=== PATIENT | male | born 1975 | race Caucasian/White ===

== ENCOUNTER 2016-11-30 14:01 | Emergency (ER) | payer MEDICAID, MEDICARE, SELFPAY ==
[~2016-11-30 14:01] MED LIST: AMIT50TA2 PO; LYRI300C PO; PERC5TAB8 PO
[2016-11-30] MEDS ORDERED: NAPROXEN 250 MG TAB As Ordered ONE (15:57)
[2016-11-30] MEDS ORDERED: CEPHALEXIN 250 MG CAP As Ordered ONE (15:57)
[2016-11-30] MEDS ORDERED: DERMABOND TOPICAL SKIN ADHESIVE As Ordered ONE (16:00)
--- NOTE | 2016-11-30 16:52 | EDDOCDS ---
Physician Documentation [facility] Name: Mark Espino Age: 41 yrs Sex: Male : 1975 Arrival Date: 11/30/2016 Time: 14:01 Bed 30 Private MD: Esteban Rasmussen MD Disposition: 11/30 16:35 Critical Care: Critical care not applicable. le Disposition: 11/30/16 16:34 Discharged to Home/Self Care. Impression: Laceration without foreign body of right index finger without damage to nail. - Condition is Stable. - Discharge Instructions: Laceration Care, Adult. - Prescriptions for Keflex 500 mg Oral Capsule - take 1 capsule by ORAL route every 8 hours for 5 days; 15 capsule. - Medication Reconciliation, Local Pharmacy Hours, Work Release Form - 5 day form. - Follow up: Esteban Rasmussen; When: As needed; Reason: Recheck today's complaints, Continuance of care. - Problem is new. - Symptoms have improved. - Notes: Return to the ED for any further concerns Historical: - Allergies: SULFA (SULFONAMIDES) (Hives); - Home Meds: 1. pregabalin 300 mg Oral cap 1 cap 2 times per day (Last dose: 11/30/2016 08:00) 2. Percocet 5-325 mg Oral tab 1 tab as needed (Last dose: 11/30/2016 08:00) - PMHx: Hernia; herniated disc's; - PSHx: Umbilical hernia repairs; - Social history: Smoking status: Patient uses tobacco products, current every day smoker. No barriers to communication noted, The patient speaks fluent Tanzanian. - Family history: Not pertinent. - : The pt / caregiver states he / she is not on anticoagulants. Home medication list is obtained from the patient. - Exposure Risk Screening:: None identified. Vital Signs: 14:02 BP 138 / 78; Pulse 78; Resp 18 S; Temp 97.9(O); Pulse Ox 98% on R/A; Weight 102.06 kg / gr2 225 lbs (R); Height 5 ft. 11 in. (180.34 cm) (R); Pain 7/10; 16:46 BP 128 / 79; Pulse 72; Resp 20; Temp 98.8(TE); Pulse Ox 98% on R/A; Pain 7/10; kcs 14:02 Body Mass Index 31.38 (102.06 kg, 180.34 cm) gr2 MDM: 15:45 Financial registration complete. lg 15:47 Cephalexin 500 mg PO once ordered. le 15:47 Naproxen 500 mg PO once; administer with food or milk ordered. le 15:47 Dermabond to bedside ordered. le 15:47 Wound Care ordered. le Administered Medications: 16:31 Drug: Cephalexin 500 mg [cephalexin 250 mg capsule (2 caps)] Route: PO; mb9 16:31 Drug: Naproxen 500 mg [naproxen 250 mg tablet (2 tabs)] Route: PO; mb9 Signatures: Love Hickman RN RN kcs Greene, Daniel, RN RN dwg Ganter, LoriLee, Reg Reg lg Westcott, Lisa, SAS ARCHITECT SAS ARCHITECT Ryan Lund RN mb9 RAFAEL
--- NOTE | 2016-11-30 16:52 | EDDOCDS ---
Nurse's Notes [facility] Name: Mark Espino Age: 41 yrs Sex: Male : 1975 Arrival Date: 11/30/2016 Time: 14:01 Bed 30 Private MD: Esteban Rasmussen MD Diagnosis: Laceration without foreign body of right index finger without damage to nail Presentation: 11/30 14:04 Presenting complaint: Patient states: Laceration to middle knuckle right index finger, dwg cut in on an oil [place] working on a car just prior to arrival. Adult Sepsis Screening: The patient does not have new or worsening altered mentation. Patient's respiratory rate is less than 22. Systolic blood pressure is greater than 100. Patient has a qSOFA score of 0- Negative Sepsis Screen. Suicide/Homicide risk assessment- the patient denies having any suicidal and/or homicidal ideations and does not present with any other emotional, behavioral or mental health complaints. Status: Patient is not a sales service executive or dependent. Transition of care: patient was not received from another setting of care. 14:04 Acuity: LYNN Level 4 dwg 14:04 Method Of Arrival: Walkin/Carried/Asstd dwg Triage Assessment: 14:07 General: Appears in no apparent distress. Pain: Pain currently is 8 out of 10 on a pain dwg scale. HIV screening NA for this visit Offered previously. Historical: - Allergies: SULFA (SULFONAMIDES) (Hives); - Home Meds: 1. pregabalin 300 mg Oral cap 1 cap 2 times per day (Last dose: 11/30/2016 08:00) 2. Percocet 5-325 mg Oral tab 1 tab as needed (Last dose: 11/30/2016 08:00) - PMHx: Hernia; herniated disc's; - PSHx: Umbilical hernia repairs; - Social history: Smoking status: Patient uses tobacco products, current every day smoker. No barriers to communication noted, The patient speaks fluent Setswana. - Family history: Not pertinent. - : The pt / caregiver states he / she is not on anticoagulants. Home medication list is obtained from the patient. - Exposure Risk Screening:: None identified. Screenin:46 Screening information is obtained from the patient. Fall risk: No risks identified. kcs Assistance ADL's: requires no assistance with activities of daily living. Abuse/DV Screen: The patient / caregiver reports he/she is: not in a situation that causes fear, pain or injury. Nutritional screening: No deficits noted. Advance Directives: Currently, there is no health care proxy. There is no living will. home support is adequate. Assessment: 16:46 Reassessment: Dressing dry and intact to right index finger - wound soaked in Hibiclens kcs and water. Wound care, Dermabond and dressing done by NP. Paolo. General: Appears comfortable, well developed, well nourished, well groomed, Behavior is cooperative, pleasant. Pain: Location: right index finger Pain currently is 7 out of 10 on a pain scale. Neurological: Level of Consciousness is awake, alert. Respiratory: Airway is patent Respiratory effort is even, unlabored, Respiratory pattern is regular, symmetrical. Derm: Skin is intact, is healthy with good turgor, Skin is dry, Skin is normal. Vital Signs: 14:02 BP 138 / 78; Pulse 78; Resp 18 S; Temp 97.9(O); Pulse Ox 98% on R/A; Weight 102.06 kg gr2 (R); Height 5 ft. 11 in. (180.34 cm) (R); Pain 7/10; 16:46 BP 128 / 79; Pulse 72; Resp 20; Temp 98.8(TE); Pulse Ox 98% on R/A; Pain 7/10; kcs 14:02 Body Mass Index 31.38 (102.06 kg, 180.34 cm) gr2 Vitals: 14:02 Log In Time: November 30, 2016 at 14:02. gr2 ED Course: 14:02 Patient visited by Fran Tom. gr2 14:02 Esteban Rasmussen is Private Physician. gr2 14:02 Patient moved to Waiting gr2 14:03 Patient visited by Fran Tom. gr2 14:03 Patient moved to Pre RCE gr2 14:06 Triage Initiated dwg 15:19 Patient moved to Triage 2 mdr 15:40 [facility] Doss [facility] le 15:44 Patient visited by Yocasta Doss FNP. le 15:44 Patient visited by Yocasta Doss FNP. le 15:52 Patient moved to 30 srm 16:34 Esteban Rasmussen is Referral Physician. le 16:46 The patient / caregiver is instructed regarding the plan of care and ED course. kcs 16:46 No IV's were initiated during this patient's visit. No procedures done that require kcs assistance. Administered Medications: 16:31 Drug: Cephalexin 500 mg [cephalexin 250 mg capsule (2 caps)] Route: PO; mb9 16:31 Drug: Naproxen 500 mg [naproxen 250 mg tablet (2 tabs)] Route: PO; mb9 Order Results: There are currently no results for this order. Outcome: 16:34 Discharge ordered by Provider. le 16:46 Discharge Assessment: Patient awake, alert and oriented x 3. No cognitive and/or kcs functional deficits noted. Patient verbalized understanding of disposition instructions. Patient awake and alert. patient administered narcotics - no. The following High Risk Discharge criteria are identified: None. Discharged to home ambulatory. Condition: stable. Discharge instructions given to patient, Instructed on discharge instructions, follow up and referral plans. medication usage, wound care, Demonstrated understanding of instructions, medications, Pt was receptive of discharge instructions/ teaching. Work note provided to patient. No special radiology studies were completed. Property sent home with patient. 16:51 Patient left the ED. kcs Signatures: Love Hickman RN RN Juan Meek RN RN dwg Michelson, Staci, RN RN [facility] Yocasta Doss, WOODWORKING BELT SANDER WOODWORKING BELT SANDER Fran Bain gr2 Ryan WeissRN RN mb9 Luis Ryan, SUSHIL OUTSIDE PHYSICAL DAMAGE APPRAISER mdr MTDD
--- NOTE | 2016-12-02 17:52 | EDDOCDS ---
Nurse's Notes [facility] Name: Mark Espino Age: 41 yrs Sex: Male : 1975 Arrival Date: 11/30/2016 Time: 14:01 Bed 30 Private MD: Esteban Rasmussen MD Diagnosis: Laceration without foreign body of right index finger without damage to nail Presentation: 11/30 14:04 Presenting complaint: Patient states: Laceration to middle knuckle right index finger, dwg cut in on an oil [place] working on a car just prior to arrival. Adult Sepsis Screening: The patient does not have new or worsening altered mentation. Patient's respiratory rate is less than 22. Systolic blood pressure is greater than 100. Patient has a qSOFA score of 0- Negative Sepsis Screen. Suicide/Homicide risk assessment- the patient denies having any suicidal and/or homicidal ideations and does not present with any other emotional, behavioral or mental health complaints. Status: Patient is not a farm equipment service technician or dependent. Transition of care: patient was not received from another setting of care. 14:04 Acuity: LYNN Level 4 dwg 14:04 Method Of Arrival: Walkin/Carried/Asstd dwg Triage Assessment: 14:07 General: Appears in no apparent distress. Pain: Pain currently is 8 out of 10 on a pain dwg scale. HIV screening NA for this visit Offered previously. Historical: - Allergies: SULFA (SULFONAMIDES) (Hives); - Home Meds: 1. pregabalin 300 mg Oral cap 1 cap 2 times per day (Last dose: 11/30/2016 08:00) 2. Percocet 5-325 mg Oral tab 1 tab as needed (Last dose: 11/30/2016 08:00) - PMHx: Hernia; herniated disc's; - PSHx: Umbilical hernia repairs; - Social history: Smoking status: Patient uses tobacco products, current every day smoker. No barriers to communication noted, The patient speaks fluent Yakut. - Family history: Not pertinent. - : The pt / caregiver states he / she is not on anticoagulants. Home medication list is obtained from the patient. - Exposure Risk Screening:: None identified. Screenin:46 Screening information is obtained from the patient. Fall risk: No risks identified. kcs Assistance ADL's: requires no assistance with activities of daily living. Abuse/DV Screen: The patient / caregiver reports he/she is: not in a situation that causes fear, pain or injury. Nutritional screening: No deficits noted. Advance Directives: Currently, there is no health care proxy. There is no living will. home support is adequate. Assessment: 16:46 Reassessment: Dressing dry and intact to right index finger - wound soaked in Hibiclens kcs and water. Wound care, Dermabond and dressing done by NP. Paolo. General: Appears comfortable, well developed, well nourished, well groomed, Behavior is cooperative, pleasant. Pain: Location: right index finger Pain currently is 7 out of 10 on a pain scale. Neurological: Level of Consciousness is awake, alert. Respiratory: Airway is patent Respiratory effort is even, unlabored, Respiratory pattern is regular, symmetrical. Derm: Skin is intact, is healthy with good turgor, Skin is dry, Skin is normal. Vital Signs: 14:02 BP 138 / 78; Pulse 78; Resp 18 S; Temp 97.9(O); Pulse Ox 98% on R/A; Weight 102.06 kg gr2 (R); Height 5 ft. 11 in. (180.34 cm) (R); Pain 7/10; 16:46 BP 128 / 79; Pulse 72; Resp 20; Temp 98.8(TE); Pulse Ox 98% on R/A; Pain 7/10; kcs 14:02 Body Mass Index 31.38 (102.06 kg, 180.34 cm) gr2 Vitals: 14:02 Log In Time: November 30, 2016 at 14:02. gr2 ED Course: 14:02 Patient visited by Fran Tom. gr2 14:02 Esteban Rasmussen is Private Physician. gr2 14:02 Patient moved to Waiting gr2 14:03 Patient visited by Fran Tom. gr2 14:03 Patient moved to Pre RCE gr2 14:06 Triage Initiated dwg 15:19 Patient moved to Triage 2 mdr 15:40 [facility] le 15:44 Patient visited by Yocasta Doss FNP. le 15:44 Patient visited by Yocasta Doss FNP. le 15:52 Patient moved to 30 srm 16:34 Esteban Rasmussen is Referral Physician. le 16:46 The patient / caregiver is instructed regarding the plan of care and ED course. kcs 16:46 No IV's were initiated during this patient's visit. No procedures done that require kcs assistance. 12/01 09:28 T-Sheet-- Draft Copy was scanned into [employer] and attached to record. gb 13:31 [facility] Payment Agreement was scanned into [employer] and attached to record. lg Administered Medications: 11/30 16:31 Drug: Cephalexin 500 mg [cephalexin 250 mg capsule (2 caps)] Route: PO; mb9 16:31 Drug: Naproxen 500 mg [naproxen 250 mg tablet (2 tabs)] Route: PO; mb9 Order Results: There are currently no results for this order. Outcome: 16:34 Discharge ordered by Provider. le 16:46 Discharge Assessment: Patient awake, alert and oriented x 3. No cognitive and/or kcs functional deficits noted. Patient verbalized understanding of disposition instructions. Patient awake and alert. patient administered narcotics - no. The following High Risk Discharge criteria are identified: None. Discharged to home ambulatory. Condition: stable. Discharge instructions given to patient, Instructed on discharge instructions, follow up and referral plans. medication usage, wound care, Demonstrated understanding of instructions, medications, Pt was receptive of discharge instructions/ teaching. Work note provided to patient. No special radiology studies were completed. Property sent home with patient. 16:51 Patient left the ED. kcs Signatures: Love Hickman RN RN kcs Greene, Daniel, RN RN dwg Michelson, Staci, RN RN [facility] Emilia Mcdonnell, Reg Reg gb Omar Jimenez, Reg Reg lg Yocasta Doss, AUTOMOTIVE PRODUCT ENGINEER AUTOMOTIVE PRODUCT ENGINEER Fran Bain gr2 Ryan Weiss RN RN mb9 Luis Ryan, SUSHIL DIGITAL PRODUCT SPECIALIST mdr Chart Complete MTDD
--- NOTE | 2016-12-02 17:52 | EDDOCDS ---
Physician Documentation [facility] Name: Mark Espino Age: 41 yrs Sex: Male : 1975 Arrival Date: 11/30/2016 Time: 14:01 Bed 30 Private MD: Esteban Rasmussen MD Disposition: 11/30 16:35 Critical Care: Critical care not applicable. le Disposition: 11/30/16 16:34 Discharged to Home/Self Care. Impression: Laceration without foreign body of right index finger without damage to nail. - Condition is Stable. - Discharge Instructions: Laceration Care, Adult. - Prescriptions for Keflex 500 mg Oral Capsule - take 1 capsule by ORAL route every 8 hours for 5 days; 15 capsule. - Medication Reconciliation, Local Pharmacy Hours, Work Release Form - 5 day form. - Follow up: Esteban Rasmussen; When: As needed; Reason: Recheck today's complaints, Continuance of care. - Problem is new. - Symptoms have improved. - Notes: Return to the ED for any further concerns Historical: - Allergies: SULFA (SULFONAMIDES) (Hives); - Home Meds: 1. pregabalin 300 mg Oral cap 1 cap 2 times per day (Last dose: 11/30/2016 08:00) 2. Percocet 5-325 mg Oral tab 1 tab as needed (Last dose: 11/30/2016 08:00) - PMHx: Hernia; herniated disc's; - PSHx: Umbilical hernia repairs; - Social history: Smoking status: Patient uses tobacco products, current every day smoker. No barriers to communication noted, The patient speaks fluent Cymraes. - Family history: Not pertinent. - : The pt / caregiver states he / she is not on anticoagulants. Home medication list is obtained from the patient. - Exposure Risk Screening:: None identified. Vital Signs: 14:02 BP 138 / 78; Pulse 78; Resp 18 S; Temp 97.9(O); Pulse Ox 98% on R/A; Weight 102.06 kg / gr2 225 lbs (R); Height 5 ft. 11 in. (180.34 cm) (R); Pain 7/10; 16:46 BP 128 / 79; Pulse 72; Resp 20; Temp 98.8(TE); Pulse Ox 98% on R/A; Pain 7/10; kcs 14:02 Body Mass Index 31.38 (102.06 kg, 180.34 cm) gr2 MDM: 15:45 Financial registration complete. lg 15:47 Cephalexin 500 mg PO once ordered. le 15:47 Naproxen 500 mg PO once; administer with food or milk ordered. le 15:47 Dermabond to bedside ordered. le 15:47 Wound Care ordered. le 12/01 09:28 T-Sheet-- Draft Copy was scanned into [employer] and attached to record. gb 13:31 [facility] Payment Agreement was scanned into [employer] and attached to record. lg Administered Medications: 11/30 16:31 Drug: Cephalexin 500 mg [cephalexin 250 mg capsule (2 caps)] Route: PO; mb9 16:31 Drug: Naproxen 500 mg [naproxen 250 mg tablet (2 tabs)] Route: PO; mb9 Signatures: Love Hickman RN RN kcs Greene, Daniel, RN RN dwEmilia Frye, Reg Reg gb Omar Jimenez, Reg Reg lg Yocasta Doss, REFRIGERATED COMPANY DRIVER REFRIGERATED COMPANY DRIVER Ryan Lund RN mb9 The chart was reviewed and I authenticate all verbal orders and agree with the evaluation and treatment provided.Attachments: 12/01 09:28 T-Sheet-- Draft Copy 13:31 [facility] Payment Agreement lg Chart Complete MTDD
--- NOTE | 2016-12-02 17:52 | EDDOCDS ---
Physician Documentation [facility] Name: Mark Espino Age: 41 yrs Sex: Male : 1975 Arrival Date: 11/30/2016 Time: 14:01 Bed 30 Private MD: Esteban Rasmussen MD Disposition: 11/30 16:35 Critical Care: Critical care not applicable. le Disposition: 11/30/16 16:34 Discharged to Home/Self Care. Impression: Laceration without foreign body of right index finger without damage to nail. - Condition is Stable. - Discharge Instructions: Laceration Care, Adult. - Prescriptions for Keflex 500 mg Oral Capsule - take 1 capsule by ORAL route every 8 hours for 5 days; 15 capsule. - Medication Reconciliation, Local Pharmacy Hours, Work Release Form - 5 day form. - Follow up: Esteban Rasmussen; When: As needed; Reason: Recheck today's complaints, Continuance of care. - Problem is new. - Symptoms have improved. - Notes: Return to the ED for any further concerns Historical: - Allergies: SULFA (SULFONAMIDES) (Hives); - Home Meds: 1. pregabalin 300 mg Oral cap 1 cap 2 times per day (Last dose: 11/30/2016 08:00) 2. Percocet 5-325 mg Oral tab 1 tab as needed (Last dose: 11/30/2016 08:00) - PMHx: Hernia; herniated disc's; - PSHx: Umbilical hernia repairs; - Social history: Smoking status: Patient uses tobacco products, current every day smoker. No barriers to communication noted, The patient speaks fluent Grenadian. - Family history: Not pertinent. - : The pt / caregiver states he / she is not on anticoagulants. Home medication list is obtained from the patient. - Exposure Risk Screening:: None identified. Vital Signs: 14:02 BP 138 / 78; Pulse 78; Resp 18 S; Temp 97.9(O); Pulse Ox 98% on R/A; Weight 102.06 kg / gr2 225 lbs (R); Height 5 ft. 11 in. (180.34 cm) (R); Pain 7/10; 16:46 BP 128 / 79; Pulse 72; Resp 20; Temp 98.8(TE); Pulse Ox 98% on R/A; Pain 7/10; kcs 14:02 Body Mass Index 31.38 (102.06 kg, 180.34 cm) gr2 MDM: 15:45 Financial registration complete. lg 15:47 Cephalexin 500 mg PO once ordered. le 15:47 Naproxen 500 mg PO once; administer with food or milk ordered. le 15:47 Dermabond to bedside ordered. le 15:47 Wound Care ordered. le 12/01 09:28 T-Sheet-- Draft Copy was scanned into [employer] and attached to record. gb 13:31 [facility] Payment Agreement was scanned into [employer] and attached to record. lg Administered Medications: 11/30 16:31 Drug: Cephalexin 500 mg [cephalexin 250 mg capsule (2 caps)] Route: PO; mb9 16:31 Drug: Naproxen 500 mg [naproxen 250 mg tablet (2 tabs)] Route: PO; mb9 Signatures: Love Hickman RN RN kcs Greene, Daniel, RN RN dwEmilia Frye, Reg Reg gb Omar Jimenez, Reg Reg lg Yocasta Doss, MATHEMATICAL SCIENTIST MATHEMATICAL SCIENTIST Ryan Lund RN mb9 The chart was reviewed and I authenticate all verbal orders and agree with the evaluation and treatment provided.Attachments: 12/01 09:28 T-Sheet-- Draft Copy 13:31 [facility] Payment Agreement lg Chart Complete MTDD
== END 2016-11-30 16:51 | disposition home or self-care (01) ==
LOC: M ED 14:01
DX: S61.210A Laceration without foreign body of right index finger without damage to nail, initial encounter (principal); W26.8XXA Contact with other sharp object(s), not elsewhere classified, initial encounter; Y92.9 Unspecified place or not applicable; Y93.9 Activity, unspecified; Y99.9 Unspecified external cause status; M51.9 Unspecified thoracic, thoracolumbar and lumbosacral intervertebral disc disorder; Z72.0 Tobacco use; Z79.899 Other long term (current) drug therapy; Z88.2 Allergy status to sulfonamides

== ENCOUNTER → 2017-11-29 | Outpatient (REF) | LOC: M SMT 10:49 | DX: M54.5 Low back pain (principal) ==

== ENCOUNTER 2021-01-17 09:56 | Emergency (ER) | payer OTHER, SELFPAY ==
[~2021-01-17] VITALS: Ht 177.8 cm; Wt 100.0 kg
[2021-01-17] MEDS ORDERED: GABA-282 PO (10:07)
[2021-01-17] MEDS ORDERED: ACETAMINOPHEN 500 MG TAB PO ONE (10:25)
[2021-01-17] MEDS ORDERED: KETOROLAC 30 MG/ML 1ML VIAL IV ONE (10:25)
[2021-01-17] MEDS ORDERED: diazePAM 5MG TABLET PO ONE (10:25)
--- NOTE | 2021-01-17 10:58 | REP ---
INDICATION: fall 1.5 wks ago, sev pain, numb down L leg, urinary hesitan. COMPARISON: None. TECHNIQUE: Axial noncontrast images of the thoracic spine with coronal and sagittal reformations. FINDINGS: Thoracic vertebral bodies are intact and without acute fracture/compression injury or subluxation. Alignment and kyphosis maintained. Mild generalized age-related changes are appreciated. IMPRESSION: Essentially age-appropriate thoracic spine CT. No evidence for acute trauma/injury. <Electronically signed by Ronnie Gillespie > 01/17/21 [id number]
--- NOTE | 2021-01-17 11:00 | REP ---
INDICATION: fall 1.5 wks ago, sev pain, numb down L leg, urinary hesitan. COMPARISON: None. TECHNIQUE: Axial noncontrast images of the lumbosacral spine from mid T12 through mid sacrum with coronal and sagittal reformations. This CT examination was performed using the following dose reduction techniques: Automated exposure control, adjustment of mA and/or kv according to the patient's size, and use of iterative reconstruction technique. FINDINGS: Alignment and lordosis maintained. Vertebral bodies are intact. Posterior elements and spinous processes are intact. There is no evidence for acute fracture/compression injury or subluxation. Mild generalized age-related changes are appreciated including very subtle early marginal spurring. Minimal posterior disc bulges at L4-5 and L5-S1 noted. Paravertebral soft tissues are normal. IMPRESSION: Essentially age appropriate lumbosacral spine CT. No evidence for acute fracture/compression injury or subluxation. <Electronically signed by Ronnie Gillespie > 01/17/21 [id number]
[2021-01-17 11:12] LABS: BASO # 0.1 10^3/uL (0.0-0.2); BASO % 1.8 % (0.0-1.0); EOS # 0.2 10^3/uL (0.0-0.5); EOS % 2.4 % (0.0-3.0); HEMATOCRIT 47.3 % (42.0-52.0); HEMOGLOBIN 16.1 g/dl (13.5-17.5); LYMPH # 2.5 10^3/uL (1.5-5.0); LYMPH % 32.9 % (24.0-44.0); MEAN CORPUSCULAR HEMOGLOBIN 28.4 pg (27.0-33.0); MEAN CORPUSCULAR VOLUME 83.6 fl (80.0-96.0); MONO # 0.5 10^3/uL (0.0-0.8); MONO % 6.1 % (2.0-8.0); NEUTROPHILS # 4.3 10^3/uL (1.5-8.5); PLATELET COUNT, AUTOMATED 223 10^3/uL (150-450); RED BLOOD COUNT 5.66 10^6/uL (4.30-6.10); WHITE BLOOD COUNT 7.7 10^3/uL (4.0-10.0)
[2021-01-17] MEDS ORDERED: ONDANSETRON 4MG/2ML VIAL IV ONE (11:35)
[2021-01-17] MEDS ORDERED: MORPHINE 4 MG/ML 1ML VIAL/SYRINGE (J2270) IV ONE (11:35)
[2021-01-17 11:42] LABS: ALBUMIN 4.1 GM/DL (3.2-5.2); ALT/SGPT 43 U/L (12-78); BILIRUBIN,DIRECT 0.1 MG/DL (0.0-0.2); BILIRUBIN,TOTAL 0.7 MG/DL (0.2-1.0); C REACTIVE PROTEIN QUANTITATIV < 0.30 MG/DL (0.00-0.30); TOTAL PROTEIN 7.8 GM/DL (6.4-8.2)
[2021-01-17 11:55] LABS: ERYTHROCYTE SEDIMENTATION RATE 4 mm/hr (0-15)
[2021-01-17] MEDS ORDERED: HYDR-3713 PO (12:19)
[2021-01-17 12:25] VITALS: BP 122/81
== END 2021-01-17 12:30 | disposition home or self-care (01) ==
LOC: M ED 09:56
DX: M51.26 Other intervertebral disc displacement, lumbar region (principal); M51.27 Other intervertebral disc displacement, lumbosacral region; M54.16 Radiculopathy, lumbar region; Z88.1 Allergy status to other antibiotic agents; Z88.2 Allergy status to sulfonamides
CPT/HCPCS: 72128; 72131; 80047; 80076; 85025; 85652; 86140; 96374; 96375; 99284; J1885; J2270; J2405